=== PATIENT | female | born 2005 | race African-American/Black ===

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

== ENCOUNTER 2023-12-31 09:23 | Emergency (ER) | payer OTHER ==
[~2023-12-31] VITALS: Ht 162.6 cm; Wt 50.0 kg
[2023-12-31 09:25] VITALS: TEMP 98.3
[2023-12-31 10:23] VITALS: BP 112/70; PULSE 71; RESP 16
== END 2023-12-31 10:30 | disposition home or self-care (01) ==
LOC: EMS 09:23
DX: S93.402A Sprain of unspecified ligament of left ankle, initial encounter (principal); X58.XXXA Exposure to other specified factors, initial encounter; Y93.89 Activity, other specified; Y92.89 Other specified places as the place of occurrence of the external cause; Y99.8 Other external cause status
CPT/HCPCS: 99283

== ENCOUNTER 2025-01-02 12:27 | Emergency (ER) | payer OTHER ==
[~2025-01-02] VITALS: Ht 157.5 cm; Wt 48.6 kg
[2025-01-02 12:34] VITALS: TEMP 98.7
[2025-01-02] MEDS: SODIUM CHLORIDE 0.9% 1,000 ML IV ONE (13:22)
[2025-01-02 13:33] LABS: BASOPHILS % (AUTO) 1.1 % (0.0-2.0); EOSINOPHILS % (AUTO) 0.6 % (1.0-6.0); HEMATOCRIT 27.7 % (36-46); HEMOGLOBIN 8.3 g/dL (12.0-16.0); LYMPHOCYTES # (AUTO) 0.5 K/uL (1.0-4.8); LYMPHOCYTES % (AUTO) 15.8 % (22.0-44.0); MEAN CORPUSCULAR HEMOGLOBIN 20.3 pg (26.0-34.0); MEAN CORPUSCULAR HGB CONC 30.1 G/dL (31.0-37.0); MEAN CORPUSCULAR VOLUME 68 fL (80-100); MONOCYTES # (AUTO) 0.3 K/uL (0.1-1.0); MONOCYTES % (AUTO) 9.1 % (2.0-9.0); NEUTROPHILS # (AUTO) 2.3 K/uL (1.8-7.7); NEUTROPHILS % (AUTO) 73.4 % (40.0-70.0); PLATELET COUNT (AUTO) 136 K/uL (150-450); RED BLOOD CELL COUNT(AUTO) 4.09 MIL/uL (4.00-5.20); RED CELL DISTRIBUTION WIDTH 19.5 % (11.5-14.5); WHITE BLOOD COUNT (AUTO) 3.1 K/uL (4.5-11.0)
[2025-01-02 13:52] LABS: ANION GAP 9 mmol/L (8-16); CALCIUM, TOTAL 8.7 mg/dL (8.8-10.5); CARBON DIOXIDE 24 mmol/L (22-29); CHLORIDE 106 mmol/L (98-107); CREATININE 0.59 mg/dL (0.60-1.30); GLOMERULAR FILTR. RATE CALC > 60 mL/min (>60); GLUCOSE,RANDOM 80 mg/dL (70-110); POTASSIUM 4.9 mmol/L (3.5-5.1); SODIUM SERUM 139 mmol/L (136-145); UREA NITROGEN, BLOOD 8 mg/dL (7-18)
[2025-01-02 13:57] LABS: RBC MORPHOLOGY COMMENT ABNORMAL RBC MORPH
[2025-01-02 14:30] VITALS: BP 111/68; PULSE 68; RESP 14; O2SAT 99
== END 2025-01-02 14:59 | disposition home or self-care (01) ==
LOC: EMS 12:27
DX: R55 Syncope and collapse (principal); D50.9 Iron deficiency anemia, unspecified; R23.2 Flushing; R11.0 Nausea
CPT/HCPCS: 99285; 96360; 71045; 80048; 85025; 36415; 93005; J7030

== ENCOUNTER 2025-06-06 19:44 | Emergency (ER) | payer OTHER ==
[~2025-06-06] VITALS: Ht 162.6 cm; Wt 47.7 kg
[2025-06-06 20:03] VITALS: TEMP 98.4
[2025-06-06] MEDS ORDERED: DIPH-1164 PO (21:20)
[2025-06-06 21:22] VITALS: BP 116/69; PULSE 69; RESP 15; O2SAT 100
[2025-06-06] MEDS: DiphenhydrAMINE HCL 25 MG/10 ML SOLUTION UDCUP PO ONE (21:30)
== END 2025-06-06 21:57 | disposition home or self-care (01) ==
LOC: EMS 19:44
DX: L50.9 Urticaria, unspecified (principal)
CPT/HCPCS: 99283; J7512